=== PATIENT | female | born 1965 | race African-American/Black ===

== ENCOUNTER 2025-04-18 14:20 | Emergency (ER) | payer SELFPAY ==
[~2025-04-18] VITALS: Ht 162.6 cm; Wt 88.0 kg
[2025-04-18 14:27] VITALS: O2SAT 97
[2025-04-18] MEDS: DIAZEPAM 5 MG TABLET PO ONE (15:11)
[2025-04-18] MEDS: KETOROLAC 15MG/ML VIAL IM ONE (15:11)
[2025-04-18] MEDS: LIDOCAINE 5% PATCH TOP SCH (15:12)
[2025-04-18] MEDS ORDERED: LIDO-53 TP (15:48)
[2025-04-18] MEDS ORDERED: KETO10TA2 MT (15:48)
[2025-04-18 15:54] VITALS: BP 140/90; PULSE 89; RESP 15; TEMP 36.7; O2SAT 99
== END 2025-04-18 15:55 | disposition home or self-care (01) ==
LOC: ER 14:20
DX: M54.2 Cervicalgia (principal); M54.9 Dorsalgia, unspecified; I10 Essential (primary) hypertension; F20.9 Schizophrenia, unspecified; Z98.890 Other specified postprocedural states
CPT/HCPCS: 99285; 72125; 71045; 96372; J1885